=== PATIENT | female | born 1985 | race Two or more races ===

== ENCOUNTER 2017-04-13 02:23 | Emergency (ER) | payer MEDICAID ==
[2017-04-13 04:06] VITALS: BP 101/62
== END 2017-04-13 04:06 | disposition home or self-care (01) ==
LOC: ED 02:23
DX: K59.00 Constipation, unspecified (principal); E07.9 Disorder of thyroid, unspecified; K64.9 Unspecified hemorrhoids
CPT/HCPCS: J2270; Q0092; Q0162